=== PATIENT | male | born 1955 | race Caucasian/White ===

== ENCOUNTER 2021-11-23 08:44 | Day surgery (SDC) | payer OTHER, MEDICAID ==
[2021-11-21 11:16] LABS: COVID AG,FIA SOURCE NASAL SWAB
[~2021-11-23] VITALS: Ht 165.1 cm; Wt 93.6 kg
[~2021-11-23 08:44] MED LIST: AMLO-257 PO; ATOR10TA84 PO; DOCU-385 PO; FURO20 PO; INSLAN SQ; KETOROLAC TROMETHAMINE 0.5% 5 ML OPHTHALMIC SOLUTION ONE; LISI-894 PO; METF-1211 PO; MOXIFLOXACIN HCL 0.5% 3 ML OPHTHALMIC SOLUTION ONE; PHENYLEPHRINE HCL 2.5% 2 ML OPHTHALMIC SOLUTION ONE; POTA8TAB71 PO; PSYL575P22 PO; RINGERS SOLUTION,LACTATED 500 ML IV ONE; SEMA1PEN3 SQ; TAMS-13 PO; TROPICAMIDE 1% 2 ML OPHTHALMIC SOLUTION ONE; [UNRECOGNIZED DRUG - CODE] PO
[2021-11-23] MEDS ORDERED: EPINEPHrine 1:1,000 [1 MG/ML] VIAL IM ONE (08:45)
[2021-11-23] MEDS ORDERED: FentaNYL CITRATE PF 100 MCG/2 ML VIAL IVP ONE (08:45)
[2021-11-23] MEDS ORDERED: POVIDONE-IODINE 10% 15 ML SOLUTION UD TP ONE (08:45)
[2021-11-23] MEDS ORDERED: TETRACAINE HCL/PF 0.5% 4 ML OPHTHALMIC SOLUTION OU ONE (08:45)
[2021-11-23] MEDS ORDERED: BALANCED SALT 15 ML OPHTHALMIC IRRIG.SOLN OU ONE (08:45)
[2021-11-23] MEDS ORDERED: LIDOCAINE/PF 1% 2 ML VIAL IM ONE (08:45)
[2021-11-23] MEDS ORDERED: CHONDR SULF A SOD/HYALURONATE 1.05 ML KIT IO ONE (08:45)
[2021-11-23] MEDS ORDERED: MIDAZOLAM HCL 2 MG/2 ML VIAL IVP ONE (08:45)
[2021-11-23] MEDS ORDERED: RINGERS SOLUTION,LACTATED 500 ML IV ONE (09:00)
[2021-11-23] MEDS: PHENYLEPHRINE HCL 2.5% 2 ML OPHTHALMIC SOLUTION OS SCH ×3 (09:20→09:31)
[2021-11-23] MEDS: KETOROLAC TROMETHAMINE 0.5% 5 ML OPHTHALMIC SOLUTION OS SCH ×3 (09:20→09:32)
[2021-11-23] MEDS: MOXIFLOXACIN HCL 0.5% 3 ML OPHTHALMIC SOLUTION OS SCH ×3 (09:20→09:32)
[2021-11-23] MEDS: TROPICAMIDE 1% 2 ML OPHTHALMIC SOLUTION OS SCH ×3 (09:20→09:31)
[2021-11-23 10:25] LABS: GLUCOMETER DEV NAME(LOC) SDS.; GLUCOSE,POINT OF CARE 125 MG/DL (70-110)
== END 2021-11-23 11:35 | disposition home or self-care (01) ==
LOC: SURGERY 08:44
PROVIDERS: ATTEND Ophthalmology
DX: E11.36 Type 2 diabetes mellitus with diabetic cataract (principal); H25.12 Age-related nuclear cataract, left eye; E11.3413 Type 2 diabetes mellitus with severe nonproliferative diabetic retinopathy with macular edema, bilateral; I10 Essential (primary) hypertension; E78.5 Hyperlipidemia, unspecified; E66.01 Morbid (severe) obesity due to excess calories; Z68.34 Body mass index [BMI] 34.0-34.9, adult; Z98.890 Other specified postprocedural states; Z79.899 Other long term (current) drug therapy
CPT/HCPCS: 66984; 82962; 87426; 93005; C9803; J0171; J2250; J3010; J3490; J7120; Q9967; V2632

== ENCOUNTER 2021-12-19 10:05 | Emergency (ER) | payer OTHER, MEDICAID ==
[~2021-12-19] VITALS: Ht 165.1 cm; Wt 95.5 kg
[~2021-12-19 10:05] MED LIST changes: +CHOL200059 PO; -KETOROLAC TROMETHAMINE 0.5% 5 ML OPHTHALMIC SOLUTION ONE; -MOXIFLOXACIN HCL 0.5% 3 ML OPHTHALMIC SOLUTION ONE; -PHENYLEPHRINE HCL 2.5% 2 ML OPHTHALMIC SOLUTION ONE; -RINGERS SOLUTION,LACTATED 500 ML IV ONE; -TROPICAMIDE 1% 2 ML OPHTHALMIC SOLUTION ONE; -[UNRECOGNIZED DRUG - CODE] PO
[2021-12-19 10:22] VITALS: BP 158/78
[2021-12-19 13:02] LABS: COVID AG,FIA SOURCE NASOPHARYNGEAL
== END 2021-12-19 13:59 | disposition home or self-care (01) ==
LOC: EMS 10:05
DX: Z20.822 Contact with and (suspected) exposure to COVID-19 (principal); E11.9 Type 2 diabetes mellitus without complications; Z98.890 Other specified postprocedural states
CPT/HCPCS: 87426; 99283; C9803; U0003

== ENCOUNTER 2021-12-21 08:12 | Day surgery (SDC) | payer OTHER, MEDICAID ==
[~2021-12-21] VITALS: Ht 165.1 cm; Wt 95.0 kg
[~2021-12-21 08:12] MED LIST changes: -CHOL200059 PO
[2021-12-21] MEDS ORDERED: MIDAZOLAM HCL 2 MG/2 ML VIAL IVP ONE (08:13)
[2021-12-21] MEDS ORDERED: TETRACAINE HCL/PF 0.5% 4 ML OPHTHALMIC SOLUTION OU ONE (08:13)
[2021-12-21] MEDS ORDERED: CHONDR SULF A SOD/HYALURONATE 1.05 ML KIT IO ONE (08:13)
[2021-12-21] MEDS ORDERED: EPINEPHrine 1:1,000 [1 MG/ML] VIAL IM ONE (08:13)
[2021-12-21] MEDS ORDERED: BALANCED SALT 15 ML OPHTHALMIC IRRIG.SOLN OU ONE (08:13)
[2021-12-21] MEDS ORDERED: LIDOCAINE/PF 1% 2 ML VIAL IM ONE (08:13)
[2021-12-21] MEDS ORDERED: POVIDONE-IODINE 10% 15 ML SOLUTION UD TP ONE (08:13)
[2021-12-21] MEDS ORDERED: FentaNYL CITRATE PF 100 MCG/2 ML VIAL IVP ONE (08:13)
[2021-12-21] MEDS ORDERED: PHENYLEPHRINE HCL 2.5% 2 ML OPHTHALMIC SOLUTION ONE (08:52)
[2021-12-21] MEDS ORDERED: MOXIFLOXACIN HCL 0.5% 3 ML OPHTHALMIC SOLUTION ONE (08:52)
[2021-12-21] MEDS ORDERED: TROPICAMIDE 1% 2 ML OPHTHALMIC SOLUTION ONE (08:52)
[2021-12-21] MEDS ORDERED: KETOROLAC TROMETHAMINE 0.5% 5 ML OPHTHALMIC SOLUTION ONE (08:52)
[2021-12-21] MEDS ORDERED: RINGERS SOLUTION,LACTATED 500 ML IV ONE (09:00)
[2021-12-21] MEDS: KETOROLAC TROMETHAMINE 0.5% 5 ML OPHTHALMIC SOLUTION OD SCH ×3 (09:07→09:19)
[2021-12-21] MEDS: MOXIFLOXACIN HCL 0.5% 3 ML OPHTHALMIC SOLUTION OD SCH ×3 (09:08→09:19)
[2021-12-21] MEDS: TROPICAMIDE 1% 2 ML OPHTHALMIC SOLUTION OD SCH ×3 (09:08→09:19)
[2021-12-21] MEDS: PHENYLEPHRINE HCL 2.5% 2 ML OPHTHALMIC SOLUTION OD SCH ×3 (09:08→09:19)
[2021-12-21 09:21] LABS: GLUCOMETER DEV NAME(LOC) SDS.; GLUCOSE,POINT OF CARE 87 MG/DL (70-110)
== END 2021-12-21 12:15 | disposition home or self-care (01) ==
LOC: SURGERY 08:12
PROVIDERS: ATTEND Ophthalmology
DX: E11.36 Type 2 diabetes mellitus with diabetic cataract (principal); H25.11 Age-related nuclear cataract, right eye; I10 Essential (primary) hypertension; Z79.899 Other long term (current) drug therapy; Z98.890 Other specified postprocedural states
CPT/HCPCS: 66984; 82962; 93005; J0171; J2250; J3010; J3490; Q9967; V2632